=== PATIENT | female | born 1980 | race American Indian/Alaskan Native ===

== ENCOUNTER 2019-08-08 05:07 | Emergency (ER) | payer BC ==
[2019-08-08] MEDS ORDERED: HYDROcodone/ACETAMINOPHEN 10-325MG TAB PO ONE (05:30)
--- NOTE | 2019-08-08 05:34 | Emergency Department Report ---
ED ENT HPI - General Chief complaint: Dental/Oral Stated complaint: TOOTHACHE Time Seen by Provider: 08/08/19 05:30 Source: patient Mode of arrival: Ambulatory Limitations: No Limitations - History of Present Illness Initial comments: 39-year-old -[place] female presents with left lower toothache x7 days. Patient states she has a tooth impaction and saw her dentist last week who tried to pull it out. She states her dentist was unsuccessful and referred her to a surgeon. Patient reports ever since that day, her tooth has been in severe pain and Motrin is not helping. She denies any fevers, facial swelling, or difficulty swallowing. She rates her pain as a 9/10 in severity and states it radiates up to her left ear and face. -: Sudden - Related Data Previous Rx's Medication Instructions Recorded Last Taken Type Acetaminophen/Codeine [Tylenol 1 tab PO Q6H PRN #12 tab 08/08/19 Unknown Rx /Codeine # 3 tab] Amoxicillin [Trimox CAP] 500 mg PO Q8H 7 Days #21 capsule 08/08/19 Unknown Rx Allergies Allergy/AdvReac Type Severity Reaction Status Date / Time No Known Allergies Allergy Verified 08/08/19 05:13 ED Dental HPI - General Chief complaint: Dental/Oral Stated complaint: TOOTHACHE Time Seen by Provider: 08/08/19 05:30 Source: patient Mode of arrival: Ambulatory Limitations: No Limitations - Related Data Previous Rx's Medication Instructions Recorded Last Taken Type Acetaminophen/Codeine [Tylenol 1 tab PO Q6H PRN #12 tab 08/08/19 Unknown Rx /Codeine # 3 tab] Amoxicillin [Trimox CAP] 500 mg PO Q8H 7 Days #21 capsule 08/08/19 Unknown Rx Allergies Allergy/AdvReac Type Severity Reaction Status Date / Time No Known Allergies Allergy Verified 08/08/19 05:13 ED Review of Systems ROS: Stated complaint: TOOTHACHE Other details as noted in HPI Comment: All other systems reviewed and negative ENT: as per HPI ED Past Medical Hx - Past Medical History Previous Medical History?: Yes Hx of Cancer: Yes (Breast Ca remission) - Surgical History Past Surgical History?: Yes Hx Breast Surgery: Yes (Double Mastectomy) - Social History Smoking Status: Never Smoker Substance Use Type: None - Medications Home Medications: Home Medications Medication Instructions Recorded Confirmed Last Taken Type Acetaminophen/Codeine [Tylenol 1 tab PO Q6H PRN #12 tab 08/08/19 Unknown Rx /Codeine # 3 tab] Amoxicillin [Trimox CAP] 500 mg PO Q8H 7 Days #21 capsule 08/08/19 Unknown Rx ED Physical Exam - General Limitations: No Limitations General appearance: alert, in no apparent distress - Head Head exam: Present: atraumatic, normocephalic - Eye Eye exam: Present: normal appearance. Absent: scleral icterus - Expanded ENT Exam Expanded Mouth exam: Absent: drooling, trismus, muffled voice Teeth exam: Present: other (No facial swelling or erythema noted). Absent: dental caries, fractured tooth # 1 - Other (mild surrounding erythema without abscess or swelling noted) - Respiratory Respiratory exam: Absent: respiratory distress - Cardiovascular Cardiovascular Exam: Present: regular rate - Neurological Exam Neurological exam: Present: alert, oriented X3 - Psychiatric Psychiatric exam: Present: normal affect, normal mood - Skin Skin exam: Present: warm, dry, intact, normal color. Absent: rash ED Medical Decision Making - Medical Decision Making Patient here with tooth pain. She is currently following with a dentist and is scheduled to have her tooth pulled by surgeon on the . Vitals are normal. Mild erythema noted on exam. Prescription for Amoxil and Tylenol 3 given. Recommend patient follow-up with her dentist in the morning reevaluation. Strict return precautions were discussed in detail. Critical care attestation.: If time is entered above; I have spent that time in minutes in the direct care o f this critically ill patient, excluding procedure time. ED Disposition Clinical Impression: Pain, dental Disposition: DC- TO HOME OR SELFCARE Is pt being admited?: No Condition: Stable Instructions: Toothache (ED) Additional Instructions: Please follow-up with your dentist for reevaluation and treatment within 24-hour Prescriptions: Amoxicillin [Trimox CAP] 500 mg PO Q8H 7 Days #21 capsule Acetaminophen/Codeine [Tylenol /Codeine # 3 tab] 1 tab PO Q6H PRN #12 tab PRN Reason: Pain , Severe (7-10)
[2019-08-08 05:52] VITALS: BP 104/44
== END 2019-08-08 05:56 | disposition home or self-care (01) ==
LOC: ED 05:07
DX: K08.89 Other specified disorders of teeth and supporting structures (principal); Z79.899 Other long term (current) drug therapy; Z85.3 Personal history of malignant neoplasm of breast; Z98.890 Other specified postprocedural states
CPT/HCPCS: 99282

== ENCOUNTER 2019-09-25 11:02 | Emergency (ER) | payer BC ==
[2019-09-25 11:11] VITALS: BP 103/48
--- NOTE | 2019-09-25 12:10 | Event Note ---
ED Screening Note ED Screening Note: pt presents for impacted widsom tooth which has been going on for a couple months she presents here for left upper dental pain she presents for left ear ache she states she has an appointment with an oral surgeon on 09/27/2019 no fever no n/v/d no swelling of the face no difficulty breathing or swallowing This initial assessment/diagnostic orders/clinical plan/treatment(s) is/are subject to change based on patients health status, clinical progression and re- assessment by fellow clinical providers in the ED. Further treatment and workup at subsequent clinical providers discretion. Patient/guardian urged not to elope from the ED as their condition may be serious if not clinically assessed and managed.
--- NOTE | 2019-09-25 12:11 | Emergency Department Report ---
Chief Complaint: Dental/Oral Stated Complaint: LEFT EAR ACHE AND TOOTHACHE Time Seen by Provider: 09/25/19 12:04 - HPI History of Present Illness: pt is a 39 yo female who presents for impacted widsom tooth which has been going on for a couple months pt has been seen for this same complaint in the ED during a previous visit she presents here for ongoing left upper dental pain she presents for also for a left ear ache she states she has an appointment with an oral surgeon on 09/27/2019 for removal of the wisdom tooth no fever no n/v/d no swelling of the face no difficulty breathing or swallowing Vitals are normal on exam: Non toxic appearing, no acute distress atraumatic, normocephalic normal appearance of the eyes, PERRL, EOMI, no periorbital edema or ecchymosis moist mucus membranes, normal posterior oropharynx, there is an impacted left wisdom tooth present, no induration or fluctuance of the gumline, no facial swelling, uvula is midline, no uvular edema, no uvular deviation, no trismus, no tongue elevation, no muffled voice, no submandibular swelling, normal TMs and canals bilaterally, no mastoid tenderness to palpation regular heart rate and rhythm, no gallops, no rubs, no murmurs breath sounds are clear bilaterally, no w/r/r A&O x4, no focal neuro deficit skin is warm, dry, intact Patient is presenting with dental pain for a couple of months No signs of dental abscess, no signs of dental infection Patient has an appointment with her oral surgeon in 2 days Discussed patient to keep her appointment and to follow-up with her dentist and oral surgeon Discussed strict return precautions with patient Patient is presenting with a nonmedical emergency at this time, medical screening examination performed and there is no threat to life or limb at this time - Exam Vital Signs: Vital Signs 09/25/19 11:08 Temperature 98.4 F Pulse Rate 79 Respiratory 18 Rate Blood Pressure 103/48 O2 Sat by Pulse 100 Oximetry MSE screening note: Focused history and physical exam performed. ED Disposition for MSE Clinical Impression: Toothache Disposition: Z-07 MED SCREENING EXAM-LEFT Is pt being admited?: No Does the pt Need Aspirin: No Condition: Stable Instructions: Toothache (ED) Additional Instructions: please follow up with the dentist. it is very important to follow up. may alternate ibuprofen and tylenol as needed for pain every 6-8 hours. return to the emergency room for any new or worsening symptoms. Referrals: [facility] [Outside] - 3-5 Days [facility] [Outside] - 3-5 Days Time of Disposition: 12:10 Print Language: [place]
== END 2019-09-25 12:49 | disposition left against medical advice (07) ==
LOC: ED 11:02
DX: K08.89 Other specified disorders of teeth and supporting structures (principal)
CPT/HCPCS: 99281